=== PATIENT | male | born 1995 | race Caucasian/White ===

== ENCOUNTER 2017-07-18 20:18 | Emergency (ER) | payer SELFPAY ==
[2017-07-18] MEDS ORDERED: DIPHENHYDRAMINE HCL 50 MG/ML VIAL IV ONE (20:27)
[2017-07-18] MEDS ORDERED: FAMOTIDINE INJ/PF 20 MG/2 ML SDV IV ONE (20:27)
[2017-07-18] MEDS ORDERED: EPINEPHRINE INJ/PF 1 MG/1 ML AMPULE IM ONE (20:27)
[2017-07-18] MEDS ORDERED: EPINEPHRINE INJ/PF 1 MG/1 ML AMPULE ONE ×2 (20:27→20:34)
[2017-07-18] MEDS ORDERED: NORMAL SALINE 1000 ML 1,000 ML IV ONE (20:28)
[2017-07-18] MEDS ORDERED: METHYLPREDNISOLONE INJ 125 MG/2 ML SDV IV ONE (20:28)
--- NOTE | 2017-07-18 20:29 | ER Document Report ---
ED General - General Chief Complaint: Allergic Reaction Stated Complaint: POSSIBLE ALLERGIC REACTION Time Seen by Provider: 07/18/17 20:27 Cannot obtain history due to: Unstable vital signs Notes: Patient is a 22-year-old male who presents with acute anaphylaxis. History is limited secondary to the severe nature of patient's presentation. Briefly, patient ate a stew made by his mother, a recipe that he has eaten several times in the past without difficulty. Approximately 15 minutes after finishing dinner patient notes that he began to become itchy everywhere, noticed swelling of his skin particularly in his face over his eyes, had increasing difficulty breathing and felt extremely lightheaded. His family immediately transported to the emergency department. He has never had similar symptoms in the past. Patient does state he feels very nauseated but has not vomited. TRAVEL OUTSIDE OF THE [place] IN LAST 30 DAYS: No - Related Data Allergies/Adverse Reactions: No Known Allergies Allergy (Verified 07/18/17 20:19) Past Medical History - General Information source: Patient, Relative - Social History Smoking Status: Never Smoker Frequency of alcohol use: None Drug Abuse: None Lives with: Parents Family History: Reviewed & Not Pertinent Review of Systems - Review of Systems Notes: Constitutional: Negative for fever. HENT: Positive for throat tightness Eyes: Negative for visual changes. Cardiovascular: Negative for chest pain. Respiratory: Positive for shortness of breath. Gastrointestinal: Positive for nausea Genitourinary: Negative for dysuria. Musculoskeletal: Negative for back pain. Skin: Positive for rash. Neurological: Negative for headaches, weakness or numbness. 10 point ROS negative except as marked above and in HPI. Physical Exam - Vital signs Vitals: Temp Pulse BP Pulse Ox 97.3 F 122 H 104/63 94 07/18/17 20:21 07/18/17 20:21 07/18/17 20:21 07/18/17 20:21 Interpretation: Hypotensive, Tachycardic Notes: PHYSICAL EXAMINATION: GENERAL: Patient appears extremely unwell, uncomfortable HEAD: Atraumatic, normocephalic. EYES: Pupils equal round and reactive to light, extraocular movements intact, sclera anicteric, conjunctiva are normal. ENT: Angioedema of the lips and tongue without posterior pharynx involvement NECK: Normal range of motion, supple without lymphadenopathy LUNGS: Scattered wheezing in all lung jamil, tachypnea HEART: Regular tachycardia without murmurs ABDOMEN: Soft, nontender, normoactive bowel sounds. No guarding, no rebound. No masses appreciated. EXTREMITIES: Normal range of motion, no pitting or edema. No cyanosis. NEUROLOGICAL: No focal neurological deficits. Moves all extremities spontaneously and on command. PSYCH: Normal mood, normal affect. SKIN: Diffuse erythema over the entirety of the patient's exposed skin with areas of scattered urticaria Course - Re-evaluation Re-evalutation: 07/18/17 20:28 Patient presents with anaphylaxis, diffusely red, diffuse urticaria, swollen lips and tongue, somewhat muffled voice and diffuse wheezing in all lung jamil. He is tachycardic although not hypotensive. I immediately came to the bedside of this patient. 0.5 mg of intramuscular epinephrine was immediately ordered. IV access was established. IV Solu-Medrol, famotidine and Benadryl also be administered. Patient will receive another 0.5 mg of epinephrine immediately after the first if he does not have resolution of his symptoms within 3-5 minutes. Will continue to reassess this patient very closely given the severity of his presentation. 07/18/17 20:39 Patient is now received a total of 1 mg of intramuscular epinephrine. His blood pressure is starting to improve and is no longer hypotensive. An epinephrine drip has been prepped by me and is hanging at the bedside primed and ready to be initiated if patient has recurrence of his hypotension. He does still have scattered urticaria although much improved before. The angioedema of his lips and eyes has begun to improve. The muffling his voice has resolved. He still has trace wheezing although much improved relative to prior exam. IV fluids are also running. Patient remained on cardiac exercise physiologist and will continue to be observed at regular intervals. He is in guarded condition at this time 07/18/17 21:13 Patient continues to appear much improved, blood pressures remain within normal limits, no longer requiring supplemental oxygen. Urticaria have mostly resolved. He is no longer nauseated. Will continue to monitor closely. He has not required any additional doses of epinephrine 07/18/17 21:55 Patient continues to be very well in appearance, no acute distress, no further vital sign abnormalities. Will continue to observe 07/18/17 22:33 Patient continues to do well, no recurrence of symptoms at this point. At this time he is safe for discharge home with prescription. At this time will discharge with return precautions and follow-up recommendations. Verbal discharge instructions given a the bedside and opportunity for questions given. Medication warnings reviewed. Patient is in agreement with this plan and has verbalized understanding of return precautions and the need for primary care follow-up in the next 24-72 hours. - Vital Signs Vital signs: Temp Pulse Resp BP Pulse Ox 97.3 F 122 H 21 H 132/88 H 98 07/18/17 20:21 07/18/17 20:21 07/18/17 23:21 07/18/17 23:21 07/18/17 23:21 Critical Care Note - Critical Care Note Total time excluding time spent on procedures (mins): 37 Comments: Critical care time spent obtaining history from patient or surrogate, discussions with consultants, development of treatment plan with patient or surrogate, evaluation of patient's response to treatment, examination of patient , ordering and performing treatments and interventions, ordering and review of laboratory studies, re-evaluation of patient's condition, ordering and review of radiographic studies and review of old charts Discharge - Discharge Clinical Impression: Acute anaphylaxis Qualifiers: Encounter type: initial encounter Qualified Code(s): T78.2XXA - Anaphylactic shock, unspecified, initial encounter Anaphylactic shock Qualifiers: Encounter type: initial encounter Qualified Code(s): T78.2XXA - Anaphylactic shock, unspecified, initial encounter Condition: Good Disposition: HOME-SNF (ED ONLY) Additional Instructions: IF YOU DEVELOP DIFFICULTY BREATHING, RETURN OF HIVES, VOMITING, LIGHTHEADEDNESS , GIVE YOURSELF THE EPINEPHRINE SHOT IMMEDIATELY AND CALL 911. NEVER HESITATE TO GIVE YOURSELF THE EPINEPHRINE THIS CAN SAVE YOUR LIFE IF YOU ARE HAVE A SERIOUS ALLERGIC REACTION. Please also follow-up with your primary care doctor for consideration of allergy testing. Prescriptions: Epinephrine [Epipen 2-Thanh] 0.3 mg IM ONCE PRN #1 packet PRN Reason:
[2017-07-18 23:23] VITALS: BP 132/88
== END 2017-07-18 23:27 ==
LOC: ER 20:18
DX: T78.2XXA Anaphylactic shock, unspecified, initial encounter (principal); R11.0 Nausea; R00.0 Tachycardia, unspecified; R06.2 Wheezing
CPT/HCPCS: 99284; 96361; 96374; 96375; J1200; J0171; J2930; J7030; S0028